=== PATIENT | female | born 1960 | race Caucasian/White ===

== ENCOUNTER → 2020-02-11 09:33 | Outpatient (CLI) | payer BC, SELFPAY ==
--- NOTE | ~2020-02-11 | MMUS_ITS ---
EXAMINATION: MM diagnostic stephen BI w rey, US breast RT limited HISTORY: Palpable right breast abnormality TECHNIQUE: Additional 3-D tomosynthesis images of the breasts were performed and synthetic 2-D images were generated. CAD analysis was submitted and interpreted. High resolution right breast ultrasound was performed. COMPARISON: Comparison to multiple prior studies sequentially, with oldest reviewed study dated 12/01. BREAST PARENCHYMAL COMPOSITION: The breasts are extremely dense, which lowers the sensitivity of mamm ography. FINDINGS: MAMMOGRAPHIC FINDINGS: There are no suspicious masses, calcifications or architectural distortion in either breast to sugges t malignancy. ULTRASOUND: Targeted right breast ultrasound: Normal heterogeneous echotexture without focal mass. IMPRESSION: 1. No evidence for malignancy in either breast. 2. Routine yearly screening mammogram and regular clinical breast examination are recommended. BI-RADS Category 1: Negative Reviewed, dictated and finalized at location A. IMPRESSION: 1. No evidence for malignancy in either breast. 2. Routine yearly screening mammogram and regular clinical breast examination a re recommended. BI-RADS Category 1: Negative
== END ==
PROVIDERS: PCP Family Medicine Adolescent Medicine; Visit Provider Family Medicine Adolescent Medicine
DX: N63.20 Unspecified lump in the left breast, unspecified quadrant (principal)
CPT/HCPCS: 76642; 77062; 77066; G0279

== ENCOUNTER 2020-09-18 16:55 | Emergency (ER) | payer BC, SELFPAY ==
--- NOTE | ~2020-09-18 | CT_ITS ---
EXAMINATION: CT abdomen pelvis w con DATE: 09/18/2020 21:15 INDICATION: Abdominal pain and nausea TECHNIQUE: Computed tomography (CT) of the abdomen and pelvis was performed with 100 cc Omnipaque 350 intravenous contrast. Automated exposure control and iterative reconstruction technique were employe d. Exam dose: 193.50 mGy-cm total exam DLP. COMPARISON: 11/18/2014 complete abdominal ultrasound FINDINGS: There is mild discoid atelectasis or scarring at the lung bases. No basilar pulmonary infil trate or consolidation. Normal heart size. No pericardial or pleural effusion. Status post cholecystectomy. No hepatic, splenic, pancreatic, and adrenal or renal space-occupying ma ss lesion is evident. Multiple calcified splenic granulomas consistent with old granulomatous disease . No bile duct or pancreatic duct dilatation. No urinary tract calculus or hydroureteronephrosis. The urinary bladder is unremarkable. Normal caliber of the abdominal aorta. No intraperitoneal or retroperitoneal or pelvic mass lesion or adenopathy or ascites. There is a prominent amount of fecal material within the colon but no apparent bowel obstruction. Grade 1 anterolisthesis at L4-5. No suspicious osteolytic or osteoblastic lesions are noted. IMPRESSION: Prominent amount of fecal material within the colon; no apparent bowel obstruction Reviewed, dictated and finalized at [facility]. Reviewed, dictated and finalized at location A. IMPRESSION: Prominent amount of fecal material within the colon; no apparent b owel obstruction
[2020-09-18 17:28] VITALS: BP 141/70; PULSE 65; RESP 17; TEMP 37; O2SAT 100
[2020-09-18 18:01] LABS: Basophils Percent Auto 0.2 % (0.2-1.2); Eosinophils Percent Auto 0.2 % (0-4.4); Hematocrit 39.5 % (37.0-47.0); Hemoglobin 13.3 g/dL (12.0-15.0); Immature Granulocyte Absolute 0.04 K/mm3 (0.00-0.031); Immature Granulocyte Percent A 0.4 % (0-0.5); Lymphocytes Absolute Auto 0.84 K/mm3 (0.9-3.2); Lymphocytes Percent Auto 7.5 % (18.3-44.2); Mean Corpuscular HGB Conc 33.7 g/dl (32-36); Mean Corpuscular Hemoglobin 30.2 pg (26-34); Mean Corpuscular Volume 89.8 fl (80-100); Mean Platelet Volume 10.4 fl (7.4-10.4); Monocytes Absolute Auto 0.7 K/mm3 (0.1-0.6); Monocytes Percent Auto 5.8 % (2.6-8.5); Neutrophils Absolute Auto 9.7 K/mm3 (1.3-6.7); Neutrophils Percent Auto 85.9 % (45.5-73.1); Platelet Count Result 177 k/mm3 (150-375); Red Cell Distribution Width 11.9 % (11.5-14.5); White Blood Count 11.3 K/mm3 (4.5-10.0)
[2020-09-18 18:10] LABS: Add Urine Microscopic? YES; Appearance Urine Clear (Clear); Bilirubin Urine Negative (Negative); Blood Urine Negative (Negative); Color Urine Yellow (Yellow); Glucose Urine UA Negative (Negative); Ketones Urine 1+ mg/dL (Negative); Leukocyte Esterase Ur Negative LEU/UL (Negative); Nitrate Urine Negative (Negative); Protein Urine 1+ mg/dL (Negative); Specific Grav Ur 1.018 (1.001-1.035); Urobilinogen Urine Negative mg/dL (<2.0)
[2020-09-18 18:11] LABS: Alanine Aminotransferase 21 U/L (4-35); Albumin Level 4.5 g/dL (3.5-5.1); Alkaline Phosphatase 63 U/L (38-126); Anion Gap 7 mmol/L (8-16); Aspartate Amino Transferase 36 U/L (14-36); Bilirubin,Total 0.6 mg/dL (0.2-1.3); Blood Urea Nitrogen 11 mg/dL (7-17); Calcium 9.5 mg/dL (8.4-10.2); Carbon Dioxide 28 mmol/L (22-30); Chloride 100 mmol/L (98-107); Estimated CRCL calculation 68 ml/min; Estimated Glomerular Filt Rate > 60; Glucose 146 mg/dL (65-105); Lipase 38 U/L (23-300); Potassium 3.8 mmol/L (3.4-5.0); Sodium 135 mmol/L (137-145)
[2020-09-18 18:24] LABS: RBC Urine 0-2 /hpf (0-2); Squamous Epithelial Cell Urine Few /hpf (Few); WBC Urine 0-3 /hpf (0-3)
[2020-09-18 18:25] LABS: Mucus Urine Few /lpf
[2020-09-18 20:17] VITALS: BP 161/75; PULSE 83; RESP 18; O2SAT 99
--- NOTE | 2020-09-18 20:43 | ED.GENADULT ---
HPI - General Adult General Chief complaint: Abdominal Pain Stated complaint: dif breathing/abd pain Time Seen by Provider: 09/18/20 20:30 Source: patient History of Present Illness HPI narrative: Patient is a 60 y/o female complaining of mid and right lower abdominal pain starting this morning. She describes her pain as sharp. She rates her pain as 10/10 initially, but 7/10 currently. There is no known alleviating or exacerbating factor. However, her pain is getting better spontaneously. She has some nausea, but no vomiting, diarrhea or dysuria. Related Data Allergies Allergy/AdvReac Type Severity Reaction Status Date / Time No Known Allergies Verified 09/18/20 20:20 Review of Systems Constitutional: Constitutional: Denies chills, Denies fever(s), Denies headache(s) and Denies weakness Eyes: Eyes: Denies blurry vision ENT: Denies headache(s) and Denies neck pain Cardiovascular: Cardiovascular: Denies chest pain and Denies dyspnea Respiratory: Respiratory: Denies cough and Denies dyspnea Gastrointestinal: Gastrointestinal: Reports abdominal pain, Denies diarrhea, Reports nausea and Reports vomiting Genitourinary: Genitourinary: Denies hematuria and Denies dysuria Musculoskeletal: Musculoskeletal: Denies back pain and Denies neck pain Neurologic: Denies headache(s) and Denies weakness PMFSH Family History Family History Other Cerebrovascular accident Diabetes mellitus Family history of malignant neoplasm of male breast Hypertension Social History Social History Smoking status: Never smoker Alcohol intake: current Exam Const: General: no acute distress and well developed Orientation/consciousness: oriented to person, oriented to place, oriented to time and patient oriented x3 HENMT: Head: normocephalic Ears: external ears normal General nose exam: Normal external nose present Eyes: General: appearance normal, both eyes and all related structures Conjunctivae: conjunctivae normal Neck: Neck: normal visual inspection and full ROM Chest: Chest palpation & inspection: normal inspection of the chest and no tenderness Resp: Effort & Inspection: normal respiratory effort Auscultation: clear to auscultation bilaterally Cardio: Rate: regular rate Rhythm: regular rhythm GI: GI Palp: No abdominal tenderness and Yes Soft to palpation Skin: General skin exam: normal color and turgor normal Neuro: General: oriented to person, oriented to place, oriented to time and patient oriented x3 Cognition (Neuro): normal cognition Extrem: General: normal to inspection, full ROM and no pedal edema Psych: Appearance: grossly normal Mental Status: mental status grossly normal Affect: normal affect Course Reevaluation(s) Reevaluation #1: Rechecked. Patient feels better and would like to be discharged. Informed patient that CT is inconclusive regarding appendicitis. Offered patient admission for observation, but patient declined. She states that she only lives a few minutes away and agrees to return if she feels worse. Date: 09/18/20 Time: 22:44 Consultations Consultation #1: Discussed with Dr. Hilario, who agrees with plan for discharge and return for worsening symptoms if patient wants to go home. Date: 09/18/20 Time: 22:44 Consultation #2: Discussed with Dr. Pappas, who agree with plan for discharge and will follow up on repeat labs. Date: 09/18/20 Time: 22:56 Vital Signs Vital signs: Vital Signs Temperature 37.0 C 09/18/20 17:28 Pulse Rate 65 09/18/20 17:28 Respiratory Rate 17 09/18/20 17:28 Blood Pressure 141/70 H 09/18/20 17:28 Pulse Oximetry 100 09/18/20 17:28 Temperature 37.0 C 09/18/20 17:28 Pulse Rate 78 09/18/20 23:06 Respiratory Rate 18 09/18/20 23:06 Blood Pressure 136/59 L 09/18/20 23:06 Pulse Oximetry 99 09/18/20 23:06 Medical Decision Making
[2020-09-18 22:46] VITALS: BP 132/78; PULSE 78; RESP 18; O2SAT 99
[2020-09-18 23:06] VITALS: BP 136/59; PULSE 78; RESP 18; O2SAT 99
== END 2020-09-18 23:07 | disposition home or self-care (01) ==
PROVIDERS: Emergency Medicine; Emergency Provider Emergency Medicine; PCP Family Medicine Adolescent Medicine
DX: R10.31 Right lower quadrant pain (principal); R93.5 Abnormal findings on diagnostic imaging of other abdominal regions, including retroperitoneum
CPT/HCPCS: 36415; 74177; 80053; 81001; 83690; 85025; 99284; Q9967

== ENCOUNTER 2020-09-19 15:28 | Outpatient (CLI) | payer BC, SELFPAY ==
[2020-09-19 15:53] LABS: Hematocrit 38.5 % (37.0-47.0); Hemoglobin 13.2 g/dL (12.0-15.0); Mean Corpuscular HGB Conc 34.3 g/dl (32-36); Mean Corpuscular Hemoglobin 30.9 pg (26-34); Mean Corpuscular Volume 90.2 fl (80-100); Mean Platelet Volume 10.1 fl (7.4-10.4); Platelet Count Result 173 k/mm3 (150-375); Red Blood Count 4.27 M/mm3 (4.2-5.4); Red Cell Distribution Width 12.1 % (11.5-14.5); White Blood Count 7.9 K/mm3 (4.5-10.0)
== END 2020-09-19 15:29 | disposition home or self-care (01) ==
LOC: ANHLAB 15:40
PROVIDERS: PCP Family Medicine Adolescent Medicine; Visit Provider Family Medicine Adolescent Medicine
DX: R10.9 Unspecified abdominal pain (principal)
CPT/HCPCS: 36415; 85027

== ENCOUNTER 2021-02-28 01:03 | Day surgery (SDC) | payer BC, SELFPAY ==
[2021-02-15 13:27] VITALS: BMI 20.6
[2021-02-28 08:21] VITALS: BP 113/67; PULSE 79; RESP 20; TEMP 37.1; O2SAT 100
--- NOTE | 2021-02-28 08:23 | WPDANESEPPF ---
Anes - Initial Pre Proc Eval Procedure: Operation Date: 02/28/21 09:30 Proposed Procedures p Screening Colonoscopy - Nima Ashley MD Date/Time: 02/28/21 08:23 Surgeon: Nima Ashley MD Pre Op Diagnosis: neoplasm screening Patient Data Age: 60 Gender: F Height: 1.68 m Weight: 58 kg Allergies Allergy/AdvReac Type Severity Reaction Status Date / Time No Known Allergies Verified 02/28/21 08:20 Home Medications Medication Instructions Recorded Confirmed Type atorvastatin 10 mg tablet 10 mg PO .every other day tablet 12/20/20 02/15/21 History insulin aspart U-100 100 unit/mL 5 unit SUBCUT TID 12/20/20 02/15/21 History (3 mL) subcutaneous pen levothyroxine 88 mcg capsule 88 mcg PO DAILY 12/20/20 02/15/21 History Patient hx anesthesia problems: none Family hx anesthesia problems: none PMFSH Past Medical History Medical History (Updated 12/20/20 @ 14:13 by Nmia Ashley MD) Arthritis Cholecystectomy planned Family History Family History Other Cerebrovascular accident Diabetes mellitus Family history of malignant neoplasm of male breast Hypertension Social History Social History (Updated 12/20/20 @ 13:37 by Indu Herrera CMA) Smoking status: Never smoker Alcohol intake: current Drinks per week: 6 Substance use: never Living arrangements: with family Spiritual care concerns: No Anes - Eval Final PreProcedure Day of Procedure 02/28/21 08:23 Patient weight: normal Heart: regular rate and rhythm Lungs: clear to auscultation and normal air movement Airway: Mallampati scale class II Neurological: alert and oriented Last oral intake: >/= 8 hours ASA classification: III Emergent: no Anesthetic plan: proceed Anesthesia type and monitoring: general GIVS Informed Consent: The patient's anesthetic plan and its attendant risks and benefits were discussed with the patient/family/POA. Questions were solicited and answers provided to the satisfaction of the patient/family/POA.
--- NOTE | 2021-02-28 08:26 | WPDGICN ---
Assessment and Plan Assessment and plan (1) Encounter for screening colonoscopy: Code(s): Z12.11 - Encounter for screening for malignant neoplasm of colon Status: Acute Assessment and Plan: Patient presents for screening colonoscopy because of age. She appears to be at average risk for colon polyps. She does have a history of abdominal pain that has subsequently resolved. High-fiber diet advised. Further recommendations will be given after endoscopy. (2) Diabetes: Code(s): E11.9 - Type 2 diabetes mellitus without complications Status: Acute Assessment and Plan: Patient has diabetes requiring insulin pump. Close control of glucose level is suggested GI Consult Note Consult date/time: 02/28/21 08:26 HPI: Carlie Chan is a 60 year old female Presents for screening colonoscopy. Patient's weight appetite bowel movements are normal. She did have brief abdominal pain after running several months ago this has subsequently resolved. She has never had a screening colonoscopy. Plan is to proceed with screening colonoscopy at this time because of her age. Family history is noncontributory. Review of Systems Review of Systems: All systems reviewed & are unremarkable except as noted in HPI and below PMFSH Past Medical History Medical History (Updated 02/28/21 @ 08:27 by Nima Ashley MD) Arthritis Cholecystectomy planned Family History Family History Other Cerebrovascular accident Diabetes mellitus Family history of malignant neoplasm of male breast Hypertension Social History Social History (Updated 12/20/20 @ 13:37 by Indu Herrera CMA) Smoking status: Never smoker Alcohol intake: current Drinks per week: 6 Substance use: never Living arrangements: with family Spiritual care concerns: No Meds Home Medications and Allergies Home Medications Medication Instructions Recorded Confirmed Type atorvastatin 10 mg tablet 10 mg PO .every other day tablet 12/20/20 02/15/21 History insulin aspart U-100 100 unit/mL 5 unit SUBCUT TID 12/20/20 02/15/21 History (3 mL) subcutaneous pen levothyroxine 88 mcg capsule 88 mcg PO DAILY 12/20/20 02/15/21 History Allergies Allergy/AdvReac Type Severity Reaction Status Date / Time No Known Allergies Verified 02/28/21 08:20 Vital Signs Vital Signs - 24 hr 02/28/21 08:21 Temperature 98.7 F Pulse Rate 79 Respiratory Rate 20 Blood Pressure 113/67 Pulse Oximetry 100 Exam Narrative: Physical exam reveals patient to be alert. Vital signs stable. HEENT exam is unremarkable. Patient is anicteric. Lungs are clear to auscultation and percussion. Heart is without murmur or extra sounds. Abdominal exam bowel sounds are present soft nontender with no organomegaly. She has an insulin pump in place.
[2021-02-28] MEDS: LACTATED RINGERS 1,000 ML 150 ML IV CONT (08:40)
[2021-02-28 08:48] LABS: Glucose Point of Care 169 mg/dl (65-105)
[2021-02-28] MEDS: SIMETHICONE ORAL SUSPENSION 20 MG/0.3 ML 30 ML BOTTLE 0.6 ML IRRIGATION (09:22)
--- NOTE | 2021-02-28 09:26 | SUR.PREOP ---
0820: PT'S INSULIN PUMP READING 208, PT BOLUSED HERSELF AT 0800, DR PEDERSEN AWARE OF INSULIN PUMP, NEW ORDERS RECEIVED TO KEEP PUMP RUNNING, PT MADE AWARE. 0835: PT'S BLOOD SUGAR 169, PT DENIES ANY SYMPTOMS OR COMPLICATIONS, PT WILL TURN INSULIN PUMP OFF BEFORE PROCEDURE PER HER REQUEST.
[2021-02-28 09:32] VITALS: BP 88/53; PULSE 66; RESP 25; O2SAT 100
[2021-02-28 09:40] LABS: Glucose Point of Care 158 mg/dl (65-105)
[2021-02-28 09:42] VITALS: BP 107/58; PULSE 72; RESP 17; O2SAT 100
[2021-02-28 09:52] VITALS: BP 110/68; PULSE 64; RESP 20; O2SAT 100
== END 2021-02-28 10:05 | disposition home or self-care (01) ==
PROVIDERS: PCP Family Medicine Adolescent Medicine; Visit Provider Internal Medicine Gastroenterology
PROC: 0DJD8ZZ Inspection of Lower Intestinal Tract, Via Natural or Artificial Opening Endoscopic (ICD-10-PCS; CPT 45378; principal; 2021-02-28 09:30)
DX: Z12.11 Encounter for screening for malignant neoplasm of colon (principal); K64.8 Other hemorrhoids; E11.9 Type 2 diabetes mellitus without complications; Z79.4 Long term (current) use of insulin
CPT/HCPCS: 45378; 82948; J2370; J2704; J7120

== ENCOUNTER → 2021-06-05 10:42 | Outpatient (CLI) | payer BC, SELFPAY ==
[2021-06-06 13:33] LABS: SARS-CoV-2 RNA PCR Negative
== END ==
PROVIDERS: PCP Family Medicine Adolescent Medicine; Visit Provider Physician Assistant
DX: R09.81 Nasal congestion (principal); R43.9 Unspecified disturbances of smell and taste; Z20.822 Contact with and (suspected) exposure to COVID-19
CPT/HCPCS: C9803; U0003; U0005

== ENCOUNTER 2021-09-18 12:25 | Outpatient (CLI) | payer BC, SELFPAY ==
--- NOTE | ~2021-09-18 | XR_ITS ---
EXAM: XR hand LT min 3V, XR hand RT min 3V HISTORY: BILATERAL HAND JOINT PAIN, NO INJURY COMPARISON: None available FINDINGS: Normal mineralization. No fracture or dislocation. No lytic or blastic lesion. Joint space s maintained. No erosion or periosteal change. Soft tissues within normal limits. IMPRESSION: Normal left and right hand radiograph findings. Reviewed, dictated and finalized at location K. IMPRESSION: Normal left and right hand radiograph findings.
== END 2021-09-18 12:26 | disposition home or self-care (01) ==
LOC: ANHIMG 12:29
PROVIDERS: PCP Family Medicine Adolescent Medicine; Visit Provider Plastic Surgery
DX: M19.041 Primary osteoarthritis, right hand (principal); M19.042 Primary osteoarthritis, left hand
CPT/HCPCS: 73130

== ENCOUNTER 2021-09-18 13:06 | Outpatient (CLI) | payer BC, SELFPAY ==
[2021-09-18 13:54] LABS: Alanine Aminotransferase 27 U/L (4-35); Albumin Level 4.8 g/dL (3.5-5.1); Alkaline Phosphatase 63 U/L (38-126); Anion Gap 8 mmol/L (8-16); Aspartate Amino Transferase 41 U/L (14-36); Bilirubin,Total 0.4 mg/dL (0.2-1.3); Blood Urea Nitrogen 14 mg/dL (7-17); Calcium 9.3 mg/dL (8.4-10.2); Carbon Dioxide 30 mmol/L (22-30); Chloride 100 mmol/L (98-107); Cholesterol 193 mg/dL (0-200); Estimated Glomerular Filt Rate > 60; Glucose 105 mg/dL (65-110); HDL Direct 89 mg/dL; Potassium 4.1 mmol/L (3.4-5.0); Sodium 138 mmol/L (137-145); Triglycerides 85 mg/dL (<150)
[2021-09-18 14:06] LABS: LDL Cholesterol Direct 69 mg/dL
[2021-09-18 14:21] LABS: Creatinine Urine 64.2 mg/dL
[2021-09-18 14:25] LABS: Thyroid Stimulating Hormone 0.494 uIU/mL (0.465-4.680)
[2021-09-18 14:26] LABS: MALB Creatinine Ratio 9.8 mg/g (0-30); Microalbumin Urine Random 6.3 mg/L (0-16.7)
== END 2021-09-18 13:07 | disposition home or self-care (01) ==
LOC: ANHLAB 13:09
PROVIDERS: PCP Family Medicine Adolescent Medicine; Visit Provider Internal Medicine Endocrinology, Diabetes & Metabolism
DX: E10.65 Type 1 diabetes mellitus with hyperglycemia (principal); E03.9 Hypothyroidism, unspecified
CPT/HCPCS: 36415; 73130; 80053; 80061; 82043; 84443

== ENCOUNTER → 2021-10-01 11:28 | Outpatient (CLI) | payer BC, SELFPAY ==
--- NOTE | ~2021-10-01 | MM_ITS ---
EXAMINATION: MM screening stephen BI w rey HISTORY: Screening TECHNIQUE: Craniocaudal and mediolateral oblique 3-D tomosynthesis images were obtained and synthetic 2-D images were generated. CAD analysis was submitted and interpreted. COMPARISON: Comparison to multiple prior studies sequentially, with oldest reviewed study dated 12/01. BREAST PARENCHYMAL COMPOSITION: The breasts are extremely dense, which lowers the sensitivity of mamm ography. FINDINGS: There is no evidence of suspicious mass, calcification, or architectural distortion to sugg est malignancy in either breast. There has been no suspicious interval change. IMPRESSION: 1. No mammographic evidence of malignancy. 2. Recommend routine screening mammography in one year. BI-RADS Category 1: Negative Reviewed, dictated and finalized at location A.
== END ==
PROVIDERS: PCP Family Medicine Adolescent Medicine; Visit Provider Obstetrics & Gynecology Gynecology
DX: Z12.31 Encounter for screening mammogram for malignant neoplasm of breast (principal)
CPT/HCPCS: 77063; 77067

== ENCOUNTER 2023-03-06 00:53 | Day surgery (SDC) | payer BC, SELFPAY ==
[2023-03-03 08:45] VITALS: BMI 20.7
--- NOTE | 2023-03-03 08:50 | PC.NURSE ---
Report to the Outpatient Waiting Room, entrance under the green pavilion located off [address], at time _0930_ on date _[phone]_. Planned Procedure Time: _1030_. Time changes happen often and if your time is changed the preop area will call you the afternoon before. - You and your visitor will be asked to self-screen and do not enter if you have any COVID symptoms. - A mask is optional within the hospital at this time. Light Breakfast. Take the following medications with a SIP of water the morning of surgery: Insulin pump OK, take meds as usual. DO NOT STOP ANY OF YOUR OTHER PRESCRIPTION MEDICATIONS PRIOR TO SURGERY ?EXCEPT THE FOLLOWING Medications to discontinue per physician None Date to take last dose Please no make-up, nail occitan, hairspray, perfume, deodorant, or body powder the day of surgery. No jewelry (including any body piercings) or valuables the day of surgery, leave them at home. Please take a shower or bath the night before, or the morning of, surgery with an antibacterial soap. Wear comfortable, loose fitting clothing. - Jewelry must be removed prior to entering the operating room. Rings and piercings that are not removed may be cut off. - The hospital will not accept responsibility for valuables. - Please leave all valuables, including medications, at home the day of surgery. No Driving restrictions before or after surgery. Follow any additional instructions given to you from your surgeon. If you or anyone in your household have experienced Covid symptoms in the past week, please notify your surgeon or the nurse liaison at the phone number below for possible testing. Telephone instructions given to _Patient____and asked if any additional questions and then verbalized understanding. Patient advised to call surgeon office or pre surgery nurse liaison [phone] if any additional questions.
--- NOTE | 2023-03-06 07:06 | WPDHPUPDATE1 ---
History and Physical Update Update Date/Time: 03/06/23 07:06 History and Physical has been reviewed, including an updated exam of the patient. There are NO changes in the patient's condition. Risks, benefits, and alternatives have been discussed and questions answered. Patient agrees to proceed with procedure.
[2023-03-06 11:25] VITALS: BP 149/81; PULSE 66; RESP 16; O2SAT 100
[2023-03-06 11:40] VITALS: BP 134/74; PULSE 69; RESP 14; O2SAT 99
[2023-03-06] MEDS: LIDO 1%/EPINEPHRINE 1:100,000 20 ML VIAL 5 ML INFILTRATE (11:44)
[2023-03-06 11:50] VITALS: BP 130/66; PULSE 72; RESP 14; O2SAT 100
[2023-03-06 11:56] VITALS: BP 122/58; PULSE 68; RESP 14; O2SAT 100
[2023-03-06 12:03] VITALS: BP 129/68; PULSE 60; RESP 16
--- NOTE | 2023-03-06 12:09 | P.OP_ITS ---
Procedure Note - Detailed Date of Procedure 03/06/23 Pre-op Diagnosis lft carpal tunnel syndrome, lft 3rd trigger finger Post-op Diagnosis Same Procedure Performed Left open carpal tunnel release and left 3rd trigger finger release Surgeon Deng Stanford MD Anesthesia Local Description of Procedure The left carpal tunnel and left 3rd A1 yolette sites were marked in the holding area with the patient's consent. She was taken to the operating room placed supine on the operating table. The left upper extremity was prepped and draped in usual fashion. The 2 sites were confirmed. A time-out was held and confirmed. The surgical sites were infiltrated with 1% lidocaine with epinephrine. Some time was allowed for hemostatic effect. The incision for the trigger release was done 1st this was a diagonal incision with blunt dissection to the flexor tendon sheath. The A1 yolette was identified and incised with a 15 blade. The complete release was accomplished with scissor tips. The patient could flex and extend without any catching. Attention was turned to the carpal tunnel where the incision was again made as marked. Blunt dissection revealed the palmar aponeurosis. This and the transverse retinaculum were incised with a 15 blade. Under 3 point retraction the retinaculum was released distally and proximally completely. There was no unusual anatomy noted. The skin was closed with 5 0 nylon at the carpal tunnel site and at the trigger finger site. Tolerated well the usual bandage was addison lied the patient is discharged with a prescription for hydrocodone 5/325 6. Estimated Blood Loss 3 Tourniquet Time 0 Complications No immediate complications Condition Stable Disposition Same day
== END 2023-03-06 12:36 | disposition home or self-care (01) ==
PROVIDERS: PCP Family Medicine Adolescent Medicine; Visit Provider Plastic Surgery
PROC: (CPT 64721; principal; 2023-03-06 11:30)
PROC: (CPT 26055; 2023-03-06 11:30)
DX: G56.02 Carpal tunnel syndrome, left upper limb (principal); M65.342 Trigger finger, left ring finger
CPT/HCPCS: 64721; 26055; A9270

== ENCOUNTER → 2023-03-25 10:53 | Outpatient (CLI) | payer BC, SELFPAY ==
--- NOTE | ~2023-03-25 | MM_ITS ---
EXAMINATION: MM screening stephen BI w rey HISTORY: Screening TECHNIQUE: Craniocaudal and mediolateral oblique 3-D tomosynthesis images were obtained and synthetic 2-D images were generated. CAD analysis was submitted and interpreted. COMPARISON: Comparison to multiple prior studies sequentially, with oldest reviewed study dated 08/03. BREAST PARENCHYMAL COMPOSITION: The breasts are extremely dense, which lowers the sensitivity of mamm ography FINDINGS: There is no evidence of suspicious mass, calcification, or architectural distortion to sugg est malignancy in either breast. There has been no suspicious interval change. IMPRESSION: 1. No mammographic evidence of malignancy. 2. Recommend routine screening mammography in one year. BI-RADS Category 1: Negative Reviewed, dictated and finalized at location A.
== END ==
PROVIDERS: PCP Nurse Practitioner; Visit Provider Nurse Practitioner
DX: Z12.31 Encounter for screening mammogram for malignant neoplasm of breast (principal)
CPT/HCPCS: 77063; 77067

== ENCOUNTER 2024-05-12 10:49 | Outpatient (CLI) | payer BC, SELFPAY ==
--- NOTE | ~2024-05-12 | DEXA_ITS ---
Bone Density Report Name: WESTLEY LEMUS Age: 63 Sex: Female Ethnicity: White Date of : 1960 Indication: postmenopausal; screening for osteoporosis; height loss; Referring Provider: TAMY, BRENT Study: Bone densitometry was performed. Exam Date: May 12, 2024 Accession number: [id number] Bone Density: Region BMD T-score Z-score Classification AP Spine(L1-L4) 0.961 -0.8 1.0 Normal Femoral Neck (Left) 0.840 -0.1 1.4 Normal Total Hip (Left) 0.857 -0.7 0.5 Normal Femoral Neck (Right) 0.865 0.1 1.6 Normal Total Hip (Right) 0.866 -0.6 0.6 Normal Total Hip Mean 0.861 -0.7 0.6 Normal World Health Organization criteria for BMD impression classify patients as: Normal (T-score at or above -1.0), Osteopenia (T-score between -1.0 and -2.5), or Osteoporosis (T-score at or below -2.5). 10-year Fracture Risk: FRAX not reported because: All T-scores for Spine Total, Hip Total, Femoral Neck at or above -1.0 Clinical Information Provided by Patient: Has used the following medications: Calcium Has the following medical conditions: type 1 diabetes Patient maximum height was 66.0 Drinks caffeinated beverages Onset of menses at age 12 Number of children 2 Missed period for more than 6 months in a row Impression: The patient has normal bone mass. Discussion: BONE DENSITY IS ABOVE THE MINIMUM DESIRABLE LEVEL AT ALL SKELETAL SITES TESTED. This patient?s bone mineral density is above the minimum desirable level (T-score -1.0 or better) at all sites measured. The patient should follow a healthful lifestyle (good nutrition with adequate calcium and vitamin D, and appropriate weight-bearing exercise). Follow-Up: Consider repeating this study in 5 years or sooner if there is some new clinical indication. Reported by: MARGARET on 05/12/2024 11:30:00 AM. Reviewed, dictated and finalized at location Jayda SABA
== END 2024-05-12 10:50 | disposition home or self-care (01) ==
LOC: ANHIMG 10:52
PROVIDERS: PCP Obstetrics & Gynecology Gynecology; Visit Provider Nurse Practitioner Women's Health
DX: Z78.0 Asymptomatic menopausal state (principal)
CPT/HCPCS: 77080

== ENCOUNTER 2024-09-22 12:36 | Outpatient (CLI) | payer MEDICARE, SELFPAY ==
--- NOTE | ~2024-09-22 | MM_ITS ---
EXAMINATION: MM screening stephen BI w rey HISTORY: Screening TECHNIQUE: Craniocaudal and mediolateral oblique 3-D tomosynthesis images were obtained and synthetic 2-D images were generated. CAD analysis was submitted and interpreted. COMPARISON: Comparison to multiple prior studies sequentially, with oldest reviewed study dated 02/2015. BREAST PARENCHYMAL COMPOSITION: Dense: The breasts are extremely dense, which lowers the sensitivity of mammography. FINDINGS: There is no evidence of suspicious mass, calcification, or architectural distortion to sugg est malignancy in either breast. There has been no suspicious interval change. IMPRESSION: 1. No mammographic evidence of malignancy. 2. Recommend routine screening mammography in one year. BI-RADS Category 1: Negative Reviewed, dictated and finalized at location B.
== END 2024-09-22 12:37 | disposition home or self-care (01) ==
PROVIDERS: PCP Obstetrics & Gynecology Gynecology; Visit Provider Obstetrics & Gynecology Gynecology
DX: Z12.31 Encounter for screening mammogram for malignant neoplasm of breast (principal)
CPT/HCPCS: 77063; 77067